=== PATIENT | female | born 1955 | race Caucasian/White ===

== ENCOUNTER 2023-03-27 23:24 | Emergency (ER) | payer MEDICARE, OTHER, SELFPAY ==
[2023-03-27 23:55] VITALS: BP 164/71; PULSE 66; RESP 16; TEMP 36.4; O2SAT 100; BMI 24.5
--- NOTE | 2023-03-28 00:01 | DI.RAD.S_ITS ---
PROCEDURE: XR WRIST RT MIN 3V INDICATIONS: fall TECHNIQUE: 3 views of the wrist were acquired. COMPARISON: None. FINDINGS: Bones: No dislocations. No suspicious bony lesions. There is a set of fractures involving the distal radius and ulna, with greater comminution involving the distal radius where intra-articular fractures are predominantly dorsal in their malalignment, with dorsal angulation as a result. Scaphoid view: Not obtained but the scaphoid visualized appears normal. Soft tissues: No suspicious soft tissue calcifications. IMPRESSION: Distal radius and ulna intra-articular fractures more prominently involving the distal radius with dorsal angulation and impaction at the fracture planes. Dictated by: García Garay M.D. on 03/28/2023 at 0:42 Approved by: García Garay M.D. on 03/28/2023 at 0:44
--- NOTE | 2023-03-28 00:02 | DI.RAD.S_ITS ---
PROCEDURE: XR SHOULDER RT MIN 2V INDICATIONS: fall/injury TECHNIQUE: To views of the shoulder were acquired. COMPARISON: None. FINDINGS: Bones: No fractures or dislocations. No suspicious bony lesions. Visualized ribs appear intact. Soft tissues: No suspicious soft tissue calcifications. IMPRESSION: No definite trauma seen. Quality of visualization of the shoulder is somewhat limited due to superimposition of multiple osseous margins. If trauma is clinically suspected additional views or CT scanning likely we should be obtained. Dictated by: García Garay M.D. on 03/28/2023 at 0:39 Approved by: García Garay M.D. on 03/28/2023 at 0:42
[2023-03-28 02:44] VITALS: PULSE 64; O2SAT 96
[2023-03-28 03:00] VITALS: BP 149/67; PULSE 64; O2SAT 98
[2023-03-28 03:30] VITALS: BP 133/61; PULSE 66; O2SAT 94
[2023-03-28 04:00] VITALS: BP 131/60; PULSE 67; O2SAT 93
[2023-03-28 04:30] VITALS: BP 133/63; PULSE 69; O2SAT 95
[2023-03-28 05:00] VITALS: BP 130/60; PULSE 68; RESP 18; O2SAT 98
--- NOTE | 2023-03-28 05:28 | ED.GENADULT ---
HPI - General Adult General Chief complaint: Extremity Injury, Upper Stated complaint: GLF header into wall Time Seen by Provider: 03/28/23 00:36 Source: patient Mode of arrival: Ambulatory History of Present Illness HPI narrative: 67-year-old woman with a history of chronic back pain walked into her closet and stumbled over her dog fell forward landing with her right wrist right shoulder impacting the wall of the closet. She comes in for further evaluation. She is neurovascularly intact that complaining of right wrist pain with mild deformity and right shoulder pain. No other complaints at this time Related Data Allergies Allergy/AdvReac Type Severity Reaction Status Date / Time [id number] Reductase Allergy Verified 03/28/23 05:54 Inhibitor Sulfa (Sulfonamide Allergy Verified 03/28/23 05:54 Antibiotics) narcotics AdvReac Uncoded 03/28/23 05:54 Review of Systems Review of Systems Narrative: Pertinent positive and negative findings as per HPI Patient History Social History Smoking Status: Former smoker Smoking Status: Former smoker alcohol intake frequency: a few times a week Substance Use Type: marijuana Exam Initial Vital Signs Initial Vital Signs: Vital Signs Temperature 97.5 F L 03/27/23 23:55 Pulse Rate 66 03/27/23 23:55 Respiratory Rate 16 03/27/23 23:55 Blood Pressure 164/71 H 03/27/23 23:55 Pulse Oximetry 100 03/27/23 23:55 Oxygen Delivery Method Room Air 03/27/23 23:55 General: Alert appropriate in no acute distress Respiratory: Able to speak in full sentences, no obvious respiratory distress Skin: No obvious rashes, warm and dry Neurologic: Grossly intact no obvious asymmetries or abnormalities Psych: appropriate insight and affect, cooperative Extremity: Right shoulder has some tenderness over the AC joint without obvious step-off. No contusion. Range of motion is moderately limited by the anterior shoulder pain but no obvious fractures are appreciated. Normal nontender range of motion at the elbow. Right wrist with swelling contusion and moderate deformity over the distal radius. Neurovascularly intact Procedures Orthopedic Splinting/Casting Right wrist: Time of procedure: 06:05 Side: right Upper Extremity Injury Location: shoulder and wrist Upper Extremity Immobilizer: sling/shoulder immobilizer and sugar tong splint Post splinting neuro exam: intact Post splinting vascular exam: intact Placed by: Nursing Course Orders Ordered: ED Orders 03/28/23 00:01 XR wrist RT min 3V Stat 03/28/23 00:02 XR shoulder RT min 2V Stat Vital Signs Vital signs: Vital Signs - 8 hr 03/27/23 23:55 03/28/23 02:44 03/28/23 03:00 Temperature 97.5 F L Pulse Rate 66 64 Respiratory Rate 16 Blood Pressure 164/71 H 149/67 H Pulse Oximetry 100 96 Oxygen Delivery Method Room Air 03/28/23 03:00 03/28/23 03:30 03/28/23 03:30 Temperature Pulse Rate 64 66 Respiratory Rate Blood Pressure 133/61 Pulse Oximetry 98 94 Oxygen Delivery Method 03/28/23 04:00 03/28/23 04:00 03/28/23 04:30 Temperature Pulse Rate 67 Respiratory Rate Blood Pressure 131/60 133/63 Pulse Oximetry 93 Oxygen Delivery Method 03/28/23 04:30 03/28/23 05:00 03/28/23 05:00 Temperature Pulse Rate 69 68 Respiratory Rate 18 Blood Pressure 130/60 Pulse Oximetry 95 98 Oxygen Delivery Method Room Air Medical Decision Making MDM Narrative Medical decision making narrative: CC: Fall with wrist and shoulder pain. Acute finding uncertain prognosis Complicating co-morbidities: Chronic back pain Data collected from: patient, partner Differential considered: Wrist fracture, shoulder fracture, AC separation, rotator cuff tear Exam documented above, pertinent findings include: Tenderness over the right wrist and right AC joint. Imaging studies independently reviewed: X-ray shoulder does not show any acute fractures Wrist x-ray shows a distal radius and ulna intra-articular fracture with dorsal angulation and impaction of the fracture planes. Treatments: Oral ibuprofen and Tylenol. Sugar-tong splint is placed on the right side and sling Is placed help the shoulder pain Discussion: Otherwise healthy 67-year-old woman stumbled falling into her closet suffering a right distal radius and ulna fracture. Sugar-tong splint is placed. She will need to follow-up with orthopedic surgery and will likely need surgical intervention which is reviewed with her. She states that all narcotics make her nauseated. Recommended ibuprofen, Tylenol, immobilization and ice to help pain control. Shoulder x-ray does not suggest acute bony injury however possibility AC separation or rotator cuff tear certainly remain within the differential. We will have her review her shoulder pain with the orthopedic consultation as well. Findings reviewed questions are answered and she is safe for discharge home Discharge Plan Departure Patient Disposition: Home Clinical Impression: Fall Fracture of wrist Qualifiers: Encounter type: initial encounter Fracture type: closed Laterality: right Qualified Code(s): S62.101A - Fracture of unspecified carpal bone, right wrist, initial encounter for closed fracture Contusion of right shoulder region Qualifiers: Encounter type: initial encounter Qualified Code(s): S40.011A - Contusion of right shoulder, initial encounter Instructions: DI for Wrist Fracture, DI for Shoulder Sprain Activity Restrictions/Additional Instructions: Thank you for coming in today You broke your right wrist. Please keep the splint in place. Using 400 mg of ibuprofen (2 [id number] pills) and 1 Tylenol every 6 hours can be very helpful in controlling pain. Please use the sling to help with the shoulder pain and provide some extra support for the splint that was placed on your wrist. Your wrist fracture may require surgical intervention. You need to follow-up with [facility], Dr. Campos. Please contact their office at [phone] and explain that you are in the emergency department, have a wrist fracture and need an appointment for definitive treatment. Please expect to find more parts and pieces that hurt over the next number of days. Ice to the splint to help with the wrist pain may also be helpful. If you find that you are getting worse or develop any new symptoms, please feel free to return to the emergency department for further evaluation. Stand Alone Forms: Patient Portal/API
[2023-03-28] MEDS: ACETAMINOPHEN 325 MG TABLET PO (05:58)
[2023-03-28] MEDS: IBUPROFEN 400 MG TABLET PO (05:59)
== END 2023-03-28 06:19 | disposition home or self-care (01) ==
PROVIDERS: Emergency Provider Emergency Medicine
DX: S62.101A Fracture of unspecified carpal bone, right wrist, initial encounter for closed fracture (principal); S40.011A Contusion of right shoulder, initial encounter; W18.30XA Fall on same level, unspecified, initial encounter
CPT/HCPCS: 29105; 73030; 73110; 99283

== ENCOUNTER 2023-04-02 11:45 | Day surgery (SDC) | payer MEDICARE, OTHER, SELFPAY ==
[2023-04-01 10:34] VITALS: BMI 23.9
--- NOTE | 2023-04-02 12:15 | PM.PREOP ---
Pre-operative Note Interval Note History & Physical reviewed/Exam performed by Physician: Yes Changes to H&P: No
[2023-04-02 12:29] VITALS: BP 158/79; PULSE 79; RESP 16; TEMP 36.2; O2SAT 100; BMI 23.9
--- NOTE | 2023-04-02 12:38 | DI.CT.S_ITS ---
PROCEDURE: CT HEAD/BRAIN WO CON INDICATIONS: head injury TECHNIQUE: Noncontrast 4.5 mm thick angled axial sections acquired from the foramen magnum to the vertex, with coronal and sagittal reformats. For radiation dose reduction, the following was used: automated exposure control, adjustment of mA and/or kV according to patient size. COMPARISON: None. FINDINGS: Image quality: Excellent. CSF spaces: Basal cisterns are patent. No extra-axial fluid collections. Ventricles are normal in size and shape. Brain: No midline shift. No intracranial masses or hemorrhage. Childress-white matter interface is normal. Skull and face: Calvarium and visualized facial bones are intact, without suspicious lesions. Sinuses: Visualized sinuses and mastoids are clear. IMPRESSION: CT head without acute intracranial abnormalities. No acute calvarial fracture. Dictated by: Lexx Tapia M.D. on 04/02/2023 at 12:07 Approved by: Lexx Tapia M.D. on 04/02/2023 at 12:08
[2023-04-02] MEDS: CEFAZOLIN 2 GM/100 ML PREMIX 100 ML IV (15:10)
--- NOTE | 2023-04-02 15:38 | SUR.OPER ---
Supine on padded OR bed, head on pillow, left arm secured on padded arm board at <90 degrees abduction, right arm draped and on black hand table, legs uncrossed, safety belt at thigh, tape over blanket over lower legs.
[2023-04-02] MEDS: LACTATED RINGERS 1,000 ML 42 ML IV (15:42)
[2023-04-02] MEDS: BUPIVACAINE 0.5% (PF) 10 ML VIAL INJ (16:05)
[2023-04-02 16:19] VITALS: BP 164/71; PULSE 99; RESP 16; TEMP 36.6; O2SAT 98
--- NOTE | 2023-04-02 16:19 | P.OP_ITS ---
Operative Date/Time/Diagnoses Date of procedure: 04/02/23 Time of procedure: 16:19 Pre-op diagnosis: Right three-part distal radius fracture Post-op diagnosis: same Procedure & Clinicians Procedure: Operative fixation right distal radius fracture Same procedure as scheduled: Yes Indications: 67-year-old female with right intra-articular distal radius fracture with a failed reduction attempt at the emergency department. She plays guitar at a high level and wants full function of her wrist and fingers. We discussed the risks and benefits of surgery again in preoperative holding area and she wished to go forward with surgery. We discussed the indications are to restore articular surface, radial height, inclination and volar tilt Surgeon: Dario Beverly Click Yes if Unassisted: Yes Anesthesia Type: General Operative Notes Findings: Right intra-articular distal radius fracture, 3 parts Closure Type: primary Specimen(s): none sent Prosthetic devices, grafts, tissues, transplants, or devices: Acumed standard distal radius plate Estimated Blood Loss (mL): 10 Blood products transfused: none Tourniquet time (min): 45 Procedure in detail: Patient was met in the preoperative holding area. Her Right upper extremities were examined and marked. We again went over consent discussed the risks including the risks of bleeding, infection, damage to internal structures incl uding the radial artery and median nerve, numbness and tingling, failure of implants, malunion, and future surgery. All of her questions were answered fully to her satisfaction and she wished to go forward with the surgery. She was brought back to the operating room and placed supine on operating table. She underwent smooth induction of anesthesia and antibiotics were given. Tourniquets were applied to the right upper extremity. She was then draped and then prepped with ChloraPrep. Appropriate drying time was observed. Time-out was performed and again my initials were noted. Tourniquet was inflated to 250 mmHg We began with a modified Gumaro approach to the volar distal radius. FCR and FPL were retracted ulnarly and the radial nerve was retracted radially. Pronator quadratus was elevated off of the distal radius and the fracture was encountered. A manual reduction was performed and a K-wire was placed through the radial styloid to hold the reduction. An Acumed distal radius locking plate was applied to the distal radius and positioned provisionally with K-wires. The oblong shaft screw was then filled with a nonlocking cortical screw. We then sequentially filled the distal locking holes with locking screws. We then returned to the shaft and filled the last 2 remaining nonlocking cortical holes. The provisional K-wire was removed and final images were obtained confirming screw length and maintenance of reduction. Skin was then closed with 3-0 Monocryl. Wound was then dressed with Xeroform, 4x4s, cast padding and a volar splint. She was awoken from anesthesia and taken to the PACU without any complications. Complications: none Post-operative Condition: stable Disposition: PACU Plan for aftercare: Patient will remain in the splint for 2 weeks. Nonweightbearing. She will come out of the splint and go into a Velcro wrist splint at the 2 week constanza.
[2023-04-02 16:25] VITALS: BP 168/74; PULSE 93; RESP 14; O2SAT 98
[2023-04-02 16:30] VITALS: BP 166/79; PULSE 82; RESP 14; O2SAT 99
[2023-04-02 16:34] VITALS: BP 146/89; PULSE 83; RESP 12; O2SAT 99
[2023-04-02] MEDS: ONDANSETRON 4 MG/2 ML INJ IV (16:35)
[2023-04-02] MEDS: OXYCODONE IR 5 MG TABLET PO (16:41)
[2023-04-02 16:43] VITALS: BP 167/95; PULSE 84; RESP 12; O2SAT 98
== END 2023-04-02 17:00 | disposition home or self-care (01) ==
PROVIDERS: PCP Physician Assistant Medical; Referring Provider Orthopaedic Surgery Foot and Ankle Surgery; Visit Provider Orthopaedic Surgery
PROC: (CPT 25609; principal; 2023-04-02 13:30)
DX: S52.571A Other intraarticular fracture of lower end of right radius, initial encounter for closed fracture (principal); W01.0XXA Fall on same level from slipping, tripping and stumbling without subsequent striking against object, initial encounter; Y92.009 Unspecified place in unspecified non-institutional (private) residence as the place of occurrence of the external cause
CPT/HCPCS: 25609; 70450; J0690; J1100; J2405; J2704; J3010

== ENCOUNTER → 2023-04-09 10:35 | Outpatient (CLI) | payer MEDICARE, OTHER, SELFPAY ==
--- NOTE | 2023-04-09 | DI.CT.S_ITS ---
PROCEDURE: CT UE RT WO CON INDICATIONS: STRAIN OF RIGHT SHOULDER TECHNIQUE: Noncontrast 1-1.5 mm thick sections acquired from the acromioclavicular joint to the inferior scapula, with coronal and sagittal reformatting. COMPARISON: [facility], CR, XR SHOULDER 2+ VIEWS RIGHT, 03/29/2023, 17:38. FINDINGS: Image quality: Excellent. Bones: Displaced impacted fracture of the humeral head and neck. There is approximately 7 mm inferior displacement of the humeral head component relative to the greater tuberosity. No definite fracture line is seen at the surgical neck of the humerus or at the lesser tuberosity. No glenoid fracture is seen. The remainder of the scapula is intact. Mild to moderate degenerative changes are seen at the acromioclavicular joint. The visualized right-sided ribs are intact. Soft tissues: Large glenohumeral effusion is seen. The rotator cuff musculature is normal in bulk. However, the tendons, ligaments, labrum, and articular cartilages are not well evaluated with standard CT. The visualized portions of the right lung are clear. IMPRESSION: 1. Impacted fracture again seen at the anatomical neck of the humerus. There is 7 mm step-off between the greater tuberosity in the articular surface component. 2. Large glenohumeral effusion. Approved by: Juan C Buenrostro M.D. on 04/09/2023 at 15:45
== END ==
PROVIDERS: PCP Physician Assistant Medical; Referring Provider Orthopaedic Surgery; Visit Provider Orthopaedic Surgery
DX: S42.291A Other displaced fracture of upper end of right humerus, initial encounter for closed fracture (principal); S46.911A Strain of unspecified muscle, fascia and tendon at shoulder and upper arm level, right arm, initial encounter; M25.411 Effusion, right shoulder; X58.XXXA Exposure to other specified factors, initial encounter
CPT/HCPCS: 73200